=== PATIENT | male | born 2000 | race Two or more races ===

== ENCOUNTER 2023-02-08 18:28 | Emergency (ER) | payer SELFPAY ==
[~2023-02-08] VITALS: Ht 177.8 cm; Wt 134.0 kg
[2023-02-08 18:50] VITALS: BP 133/87; PULSE 119; RESP 16; TEMP 97.6; O2SAT 96
[2023-02-08] MEDS ORDERED: MORPHINE SULFATE INJ 2 MG/ml SYRG IV ONE (19:45)
[2023-02-08] MEDS ORDERED: cefTRIAXone 1GM/50ML D5W 50 ML IV ONE (19:45)
[2023-02-08] MEDS ORDERED: PIPERACILLIN-TAZOB 3.375GM 100 ML IV ONE (19:45)
[2023-02-08] MEDS ORDERED: cefTRIAXone SOD 1,000 MG VL IM ONE (20:00)
[2023-02-08] MEDS ORDERED: DexAMETHasone SOD PHOS 10MG/1ML VIAL INJ IM ONE (20:00)
[2023-02-08] MEDS ORDERED: diphenhdrAMINE HCL 25 MG CAP PO ONE (20:00)
[2023-02-08] MEDS ORDERED: CLIN300C70 PO (20:06)
[2023-02-08] MEDS ORDERED: BACDST PO (20:06)
[2023-02-08] MEDS ORDERED: IBUP1TAB5 PO (20:06)
[2023-02-08] MEDS ORDERED: LIDOCAINE 1% HCL (LOCAL ANESTH.) INJ 20ML MDV ONE (20:32)
[2023-02-08] MEDS ORDERED: HYDROcodone-ACET 5/325MG TAB PO ONE (20:45)
== END 2023-02-08 20:45 | disposition home or self-care (01) ==
LOC: ER 18:28
DX: S00.86XA Insect bite (nonvenomous) of other part of head, initial encounter (principal); L03.211 Cellulitis of face; W57.XXXA Bitten or stung by nonvenomous insect and other nonvenomous arthropods, initial encounter; Y93.89 Activity, other specified; Y92.89 Other specified places as the place of occurrence of the external cause; Y99.8 Other external cause status
CPT/HCPCS: 96372; 99284; J0696; J1100; J2001